=== PATIENT | male | born 1955 | race Two or more races ===

== ENCOUNTER 2020-12-26 14:32 | Day surgery (SDC) | payer BC ==
[2020-12-26] VITALS (9 sets, daily range): BP systolic 112–130; BP diastolic 62–71
[~2020-12-26] VITALS: Ht 172.7 cm; Wt 63.6 kg
[~2020-12-26 14:32] MED LIST: BP MED PO; LIDOcaine Viscous 15ml cup ONE; MIDAZolam 1 MG/ML 5ML VIAL ONE; fentaNYL/PF 50MCG/1 ML 2ML syringe ONE; glucagon, human recombinant 1mg kit ONE; iohexol 300 MG/1 ML 50ml polymer ONE; proCHLORperazine 10 MG/2 ml inj ONE
== END 2020-12-26 17:20 | disposition short-term general hospital (02) ==
LOC: GI LAB 14:32
PROVIDERS: ATTEND Internal Medicine Gastroenterology
DX: K83.1 Obstruction of bile duct (principal); K83.8 Other specified diseases of biliary tract; I10 Essential (primary) hypertension; Z87.891 Personal history of nicotine dependence; Z72.89 Other problems related to lifestyle; Z79.899 Other long term (current) drug therapy
CPT/HCPCS: 43261; 43274; 74328; 99152; 99153; C1769; C2625; J0780; J1610; J2250; J3010; J7040; Q9967; Z7512; Z7610; 43262; A4620